=== PATIENT | female | born 1975 | race Caucasian/White ===

== ENCOUNTER 2017-03-03 12:14 | Emergency (ER) | payer BC ==
--- NOTE | 2017-03-03 13:17 | EDPHY ---
H & P Smoking Status: Former smoker Time Seen by Provider: 03/03/17 12:44 HPI/ROS: CHIEF COMPLAINT: Neck swelling, toothache HISTORY OF PRESENT ILLNESS: This is a 41-year-old female presenting to the emergency department complaining of dental pain with right-sided neck swelling. Patient states she has been on amoxicillin 500 mg twice a day a since Wednesday, had a root canal performed on Wednesday over the past 24 hours she has had increase tooth pain with gum swelling and swelling to the right side of her neck. Sore throat, pain and difficulty swallowing. Denies any fever chills no nausea vomiting REVIEW OF SYSTEMS: Constitutional: No fever, no chills. Eyes: No discharge. No blurred vision ENT: Sore throat right side dental pain right-sided neck pain with swelling, difficulty swallowing Cardiovascular: No chest pain, no palpitations. Respiratory: No cough, no shortness of breath. Gastrointestinal: No abdominal pain, no vomiting. Genitourinary: No hematuria. Musculoskeletal: No back pain. Skin: No rashes. Neurological: No headache. (Agnes Olivarez) Physical Exam: General Appearance: Alert, no distress. Eyes: Pupils equal and round no pallor or injection. ENT, Mouth: Mucous membranes moist. Right tonsillar swelling. right mandibular gum tenderness on palpation. Right-sided lymphadenopathy tender on palpation airway patent. No trismus. No drooling Respiratory: There are no retractions, lungs are clear to auscultation. Cardiovascular: Regular rate and rhythm. Gastrointestinal: Abdomen is soft and nontender, no masses, bowel sounds normal. Neurological: No focal deficits. Answering questions appropriately Skin: Warm and dry, no rashes. Musculoskeletal: Neck is supple. Full range of motion Extremities: symmetrical, full range of motion. (Agnes Olivarez) Constitutional: Initial Vital Signs Temperature (C) 36.9 C 03/03/17 12:18 Heart Rate 72 03/03/17 12:18 Respiratory Rate 16 03/03/17 12:18 Blood Pressure 126/89 H 03/03/17 12:18 O2 Sat (%) 93 03/03/17 12:18 O2 Delivery Mode Room Air Allergies/Adverse Reactions: cephalexin Allergy (Verified 03/03/17 12:21) Home Medications: Medication Instructions Recorded oxyCODONE/APAP 5/325 [Percocet 1 - 2 tab PO Q6H PRN #10 tab 03/03/17 5/325 (*)] Medical Decision Making ED Course/Re-evaluation: Discussed ED plan of care: CBC, BMP, hCG, CT with contrast soft tissue neck. pain medicines 1520: Spoke with Dr. Abraham CT negative for any abscess. Discussed CT results with patient 1545: Discussed discharge instructions the patient, discharge home---> stable ( Agnes Olivarez) I did not see this patient while she was in the emergency department. However her care was discussed with the nurse practitioner while the patient was in the department. I agree with treatment plan and management (Jonathan Anthony) Differential Diagnosis: Other differential diagnosis considered but not limited to cellulitis, abscess, infected tooth (Agnes Olivarez) - Data Points Laboratory Results: Laboratory Results 03/03/17 12:55 03/03/17 13:14 Medications Given: Discontinued Medications Morphine Sulfate (Morphine) 2 mg IVP EDNOW ONE Stop: 03/03/17 13:16 Last Admin: 03/03/17 13:21 Dose: 2 mg Oxycodone/Acetaminophen (Percocet 5/325) 1 tab PO EDNOW ONE Stop: 03/03/17 15:37 Last Admin: 03/03/17 15:53 Dose: 1 tab Departure - Departure Disposition: Home, Routine, Self-Care Clinical Impression: Pain in gums, Pain, dental Condition: Good Instructions: Toothache (ED) Additional Instructions: 1. Discussed CT was patient no abscess 2. Continue taking antibiotics were prescribed you by dental. 3. You can take ibuprofen 600 mg every 6-8 hours as needed. You can also use Orajel on the gum surrounding the tooth that had root canal 4. There is always residual pain after a root canal this is very common. 5. You can use ice and heat to the area 6. Recommend soft foods versus hard food this can increased pain with chewing 7. Follow up with dental by the end of the week Referrals: NONE *PRIMARY CARE P,. [Primary Care Provider] - As per Instructions [facility],. [Clinic] - As per Instructions Prescriptions: oxyCODONE/APAP 5/325 [Percocet 5/325 (*)] 1 - 2 tab PO Q6H PRN #10 tab PRN Reason: Pain, Severe
[2017-03-03 13:21] LABS: % IMMATURE GRANULYOCYTES 0.3 % (0.0-1.1); ABSOLUTE IMMATURE GRANULOCYTES 0.03 10^3/uL (0.00-0.10); ADD DIFF? NO; ADD MORPH? NO; ADD SCAN? NO; ATYPICAL LYMPHOCYTE FLAG 0 (0-99); FRAGMENT RBC FLAG 0 (0-99); HEMATOCRIT 37.3 % (38.0-47.0); HEMOGLOBIN 12.4 g/dL (12.6-16.3); LEFT SHIFT FLG 10 (0-99); LIPEMIA HEMOLYSIS FLAG 80 (0-99); MEAN CELL HEMOGLOBIN 31.6 pg (27.9-34.1); MEAN CELL HEMOGLOBIN CONCENTR. 33.2 g/dL (32.4-36.7); MEAN CELL VOLUME 95.2 fL (81.5-99.8); MEAN PLATELET VOLUME 9.3 fL (8.7-11.7); PLATELET CLUMPS FLAG 0 (0-99); PLATELET COUNT 254 10^3/uL (150-400); RED BLOOD CELL COUNT 3.92 10^6/uL (4.18-5.33); RED CELL DISTRIBUTION WIDTH 12.2 % (11.5-15.2)
[2017-03-03 13:54] LABS: ANION GAP 10 mEq/L (8-16); CALCIUM 9.4 mg/dL (8.5-10.4); CARBON DIOXIDE 24 mEq/l (22-31); CHLORIDE 107 mEq/L (97-110); CREATININE 0.8 mg/dL (0.6-1.0); GLOMERULAR FILTRATION RATE > 60; GLUCOSE 78 mg/dL (70-100); POTASSIUM 4.1 mEq/L (3.5-5.2); SODIUM 141 mEq/L (134-144)
[2017-03-03] MEDS ORDERED: IOPAMIDOL (ISOVUE-300) 100 ML BTL ONE (14:14)
[2017-03-03] MEDS ORDERED: OXYCODONE/APAP 5/325 TAB PO ONE (15:36)
[2017-03-03 15:57] VITALS: BP 122/68; PULSE 72; RESP 18; TEMP 98.2; O2SAT 96
== END 2017-03-03 15:57 | disposition home or self-care (01) ==
DX: K08.89 Other specified disorders of teeth and supporting structures (principal); Z87.891 Personal history of nicotine dependence
CPT/HCPCS: 96374; Q9967